=== PATIENT | female | born 1950 | race Caucasian/White ===

== ENCOUNTER → 2023-12-26 11:12 | Outpatient (REF) | payer OTHER, SELFPAY | LOC: RAD 11:12 | PROVIDERS: ATTENDING PHYSICIAN Nurse Practitioner Family; FAMILY PHYSICIAN Nurse Practitioner Family | DX: M62.830 Muscle spasm of back (principal) | CPT/HCPCS: 72072 ==

== ENCOUNTER → 2024-03-15 16:44 | Outpatient (REF) | payer OTHER, SELFPAY | LOC: PAVMRI 16:44 | PROVIDERS: ATTENDING PHYSICIAN Physician Assistant; FAMILY PHYSICIAN Nurse Practitioner Family | DX: M54.50 Low back pain, unspecified (principal); S22.050A Wedge compression fracture of T5-T6 vertebra, initial encounter for closed fracture | CPT/HCPCS: 72146; 72148 ==